=== PATIENT | female | born 1945 | race Two or more races ===

== ENCOUNTER → 2017-03-18 | Outpatient (CLI) | payer OTHER | LOC: BRMIMAGING 08:21 | PROVIDERS: ATTEND Physician Assistant Medical | DX: Z13.820 Encounter for screening for osteoporosis (principal); M81.0 Age-related osteoporosis without current pathological fracture ==

== ENCOUNTER → 2017-04-01 | Outpatient (CLI) | payer OTHER | LOC: BRMIMAGING 11:06 | PROVIDERS: ATTEND Physician Assistant Medical | DX: Z12.31 Encounter for screening mammogram for malignant neoplasm of breast (principal) | CPT/HCPCS: G0202 ==

== ENCOUNTER → 2018-04-03 | Outpatient (CLI) | payer OTHER | LOC: BRMIMAGING 12:50 | PROVIDERS: ATTEND Physician Assistant Medical | DX: Z12.31 Encounter for screening mammogram for malignant neoplasm of breast (principal) ==